=== PATIENT | female | born 1960 | race Asian ===

== ENCOUNTER 2021-08-29 13:29 | Outpatient (CLI) | payer OTHER ==
--- NOTE | 2021-08-30 11:47 | Mammography Report ---
BILATERAL DIGITAL SCREENING MAMMOGRAM 3D/2D: 08/29/2021 CLINICAL: Baseline exam. Routine screening. No prior exams were available for comparison. There are scattered fibroglandular elements in both br easts. No significant masses, calcifications, or other findings are seen in either breast. IMPRESSION: NEGATIVE There is no mammographic evidence of malignancy. A 1 year screening mammogram is recommended. This exam was interpreted at Station ID: [id number]. NOTE: For mammograms, a report in lay terms will be sent to the patient. Approximately 15% of breast malignancies will not be visualized mammographically. In the management of a palpable breast mass, a negative mammogram must not discourage biopsy of a clinically suspicious lesion. Electronically Signed By: Yanick [email or web address]/[email or web address]:08/29/2021 14:10:38 ACR BI-RADS Category 1: Negative 3341F PARENCHYMAL PATTERN: (A) - The breast(s) demonstrate(s) scattered fibroglandular densities. BI-RADS CATEGORY: (1) - 1 RECOMMENDATION: (ANNUAL) - Recommend routine annual screening mammography. [id number] 1 year screening LATERALITY: (B)
== END 2021-08-29 13:30 | disposition home or self-care (01) ==
LOC: DI.N 13:29
DX: Z12.31 Encounter for screening mammogram for malignant neoplasm of breast (principal)

== ENCOUNTER 2021-09-10 09:19 | Outpatient (CLI) | payer OTHER ==
--- NOTE | 2021-09-10 17:53 | Ultrasound Report ---
PROCEDURE: Head or Neck Soft Tissue INDICATIONS:HX THYROID CA, MASS IN NECK TECHNIQUE: Grayscale and Doppler ultrasound images of the thyroid were performed. COMPARISON: None. FINDINGS: Right: The right thyroid lobe is surgically absent. Left: Thyroid lobe measures 5.4 x 1.9 x 1.7 cm, and is homogenous in echotexture Isthmus: 0.6 Nodule number: 1 Location: Right upper quadrant Size: 2.1 x 1.0 x 0.9 including a cystic portion. The solid/cystic portion measures 1.0 x 0.7 x 0.9 c m Composition: 0 Echogenicity: There is an anechoic cystic portion, the smaller mixed solid/cystic portion is predomi nantly isoechoic. Shape: Wider than tall. Margins: Smooth Echogenic foci: None Total points: 2 ACR TI-RADS category: 2 Nodule number: 2 Location: Left mid posterior Size: 0.8 x 0.4 x 0.4 Composition: Solid Echogenicity: Hypoechoic Shape: Wider than tall. Margins: Smooth Echogenic foci: None Total points: 4 ACR TI-RADS category: 4 Nodule number: 3 Location: Left mid lateral Size: 0.8 x 0.3 x 0.3 Composition: Solid Echogenicity: Isoechoic Shape: Wider than tall Margins: Smooth Echogenic foci: None Total points: 3 ACR TI-RADS category: 3 IMPRESSION: Thyroid nodules as above. Given history of thyroid cancer and right thyroidectomy, recomm end follow-up thyroid ultrasound in one year to ensure stability. Reviewed by: Celso Sharma on 09/10/2021 4:51 PM GLADYS Approved by: Celso Sharma on 09/10/2021 4:51 PM AKST Station ID: [id number]
== END 2021-09-10 09:20 | disposition home or self-care (01) ==
LOC: DI 09:19
PROVIDERS: ATTEND Family Medicine
DX: C73 Malignant neoplasm of thyroid gland (principal); E04.2 Nontoxic multinodular goiter